=== PATIENT | male | born 1960 | race African-American/Black ===

== ENCOUNTER 2016-10-20 13:12 | Emergency (ER) | payer MEDICAID ==
[2016-10-20 14:17] LABS: BASOPHILS 0.3 % (0.0-2.0); EOSINOPHILS 1.5 % (0-7); HEMATOCRIT 43.8 % (42.0-54.0); HEMOGLOBIN 14.7 g/dL (13.5-17.5); IMMATURE GRANULOCYTES 0.2 % (0-5); LYMPHOCYTES 32.7 % (15-50); MCH 29.8 pg (26.0-34.0); MCHC 33.6 g/dL (31.0-37.0); MCV 88.8 fL (80.0-100.0); MEAN PLATELET VOLUME 10.3 fL (7.4-10.4); MONOCYTES 6.5 % (2-11); NEUTROPHILS 58.8 % (40-80); PLATELET COUNT 258 10x3/uL (130-400); RBC 4.93 10x6/uL (4.20-6.10); RDW 13.8 % (11.5-14.5)
[2016-10-20 14:39] LABS: ALBUMIN 3.5 g/dL (3.4-5.0); ALKALINE PHOSPHATASE 41 U/L (46-116); ALT (SGPT) 20 U/L (10-68); BILIRUBIN - TOTAL 0.63 mg/dL (0.2-1.3); CALC OSMOLALITY 281 mosm/kg (275-300); CALCIUM 9.4 mg/dL (8.5-10.1); CARBON DIOXIDE 29.3 mmol/L (21.0-32.0); CHLORIDE - SERUM 106 mmol/L (98-107); CREATININE - SERUM 1.2 mg/dL (0.6-1.3); GLUCOSE 89 mg/dL (74-106); POTASSIUM - SERUM 3.7 mmol/L (3.5-5.1); PROTEIN - SERUM 7.1 g/dL (6.4-8.2); SODIUM 143 mmol/L (136-145); UREA NITROGEN 6 mg/dL (7-18); eGFR NON AFRICAN AMERICAN 66 mL/min (90-120)
[2016-10-20 14:50] LABS: CKMB 1.6 U/L (0.0-3.6); CREATINE KINASE 257 UL (21-232)
[2016-10-20 14:51] LABS: TROPONIN-I < 0.017 ng/mL (0.000-0.060)
== END 2016-10-20 15:50 | disposition home or self-care (01) ==
LOC: D.ER 13:12
PROVIDERS: Emergency Medicine
DX: S29.011A Strain of muscle and tendon of front wall of thorax, initial encounter (principal); X50.0XXA Overexertion from strenuous movement or load, initial encounter; X50.9XXA Other and unspecified overexertion or strenuous movements or postures, initial encounter; Y93.89 Activity, other specified; Y92.89 Other specified places as the place of occurrence of the external cause; F17.200 Nicotine dependence, unspecified, uncomplicated

== ENCOUNTER 2017-01-26 00:41 | Emergency (ER) | payer SELFPAY | END 2017-01-26 02:35 | disposition home or self-care (01) | LOC: D.ER 00:41 | DX: M79.672 Pain in left foot (principal); M79.671 Pain in right foot ==

== ENCOUNTER → 2017-01-26 04:16 | Emergency (ER) | payer SELFPAY ==
[2017-01-26 04:32] LABS: BASOPHILS 0.3 % (0-2); EOSINOPHILS 2.3 % (0-7); HEMATOCRIT 40.8 % (42.0-54.0); HEMOGLOBIN 13.3 g/dL (13.5-17.5); IMMATURE GRANULOCYTES 0.1 % (0-5); LYMPHOCYTES 34.8 % (15-50); MCH 29.2 pg (26.0-34.0); MCHC 32.6 g/dL (31.0-37.0); MCV 89.7 fL (80.0-100.0); MEAN PLATELET VOLUME 10.2 fL (7.4-10.4); MONOCYTES 7.2 % (2-11); NEUTROPHILS 55.3 % (40-80); PLATELET COUNT 213 10x3/uL (130-400); RBC 4.55 10x6/uL (4.20-6.10); RDW 13.5 % (11.5-14.5); WBC 6.8 10x3/uL (4.8-10.8)
[2017-01-26 04:50] LABS: ALBUMIN 3.2 g/dL (3.4-5.0); ANION GAP 12.3 mmol/L (8-16); BILIRUBIN - TOTAL 0.32 mg/dL (0.2-1.3); CALCIUM 9.1 mg/dL (8.5-10.1); CREATININE - SERUM 1.2 mg/dL (0.6-1.3); POTASSIUM - SERUM 3.3 mmol/L (3.5-5.1)
== END | disposition home or self-care (01) ==
LOC: D.ER 04:16
PROVIDERS: Emergency Medicine
DX: R10.12 Left upper quadrant pain (principal); F17.200 Nicotine dependence, unspecified, uncomplicated

== ENCOUNTER 2017-01-27 01:02 | Emergency (ER) | payer SELFPAY | END 2017-01-27 02:53 | disposition home or self-care (01) | LOC: D.ER 01:02 | DX: R07.89 Other chest pain (principal); F17.200 Nicotine dependence, unspecified, uncomplicated ==

== ENCOUNTER 2017-12-08 07:47 | Emergency (ER) | payer MEDICAID ==
[2017-12-08 08:59] LABS: APPEARANCE HAZY (CLEAR); BILIRUBIN NEGATIVE (NEGATIVE); COLOR YELLOW (YELLOW); GLUCOSE NEGATIVE (NEGATIVE); KETONE NEGATIVE (NEGATIVE); NITRITE NEGATIVE (NEGATIVE); PROTEIN 2+ mg/dL (NEGATIVE); UROBILINOGEN NORMAL (NORMAL)
[2017-12-08 09:03] LABS: BACTERIA MODERATE /hpf (NONE SEEN); EPITHELIAL CELLS 0-5 /hpf (0-5); MUCUS >1+ /lpf (NONE SEEN); RED CELLS - URINE >50 /hpf (0-5)
[2017-12-08 09:26] LABS: ALBUMIN 3.7 g/dL (3.4-5.0); ANION GAP 11.4 mmol/L (8-16); BILIRUBIN - TOTAL 0.82 mg/dL (0.2-1.3); CALCIUM 9.4 mg/dL (8.5-10.1); CARBON DIOXIDE 29.4 mmol/L (21.0-32.0); CREATININE - SERUM 1.2 mg/dL (0.6-1.3); POTASSIUM - SERUM 3.8 mmol/L (3.5-5.1); PROTEIN - SERUM 7.6 g/dL (6.4-8.2)
== END 2017-12-08 11:33 | disposition home or self-care (01) ==
LOC: D.ER 07:47
PROVIDERS: Emergency Medicine
DX: N50.3 Cyst of epididymis (principal); N43.3 Hydrocele, unspecified

== ENCOUNTER 2018-08-18 21:41 | Emergency (ER) | payer MEDICAID ==
[~2018-08-18] VITALS: Ht 180.3 cm; Wt 79.5 kg
[2018-08-18 21:45] VITALS: Ht 180.3 cm; Wt 79.5 kg
[2018-08-18] MEDS ORDERED: VOLTAREN75 MG PO (22:51)
[2018-08-18 23:19] VITALS: BP 165/107
== END 2018-08-18 23:19 | disposition home or self-care (01) ==
LOC: D.ER 21:41
DX: S69.92XA Unspecified injury of left wrist, hand and finger(s), initial encounter (principal); W23.0XXA Caught, crushed, jammed, or pinched between moving objects, initial encounter; Y93.89 Activity, other specified; Y92.511 Restaurant or cafe as the place of occurrence of the external cause

== ENCOUNTER 2018-08-20 17:32 | Emergency (ER) | payer MEDICAID ==
[~2018-08-20 17:32] MED LIST: VOLTAREN75 MG PO
[2018-08-20 17:47] VITALS: Ht 180.3 cm
[2018-08-20] MEDS ORDERED: ULTRAM50 MG PO (18:43)
[2018-08-20 18:52] VITALS: BP 136/94
== END 2018-08-20 18:55 | disposition home or self-care (01) ==
LOC: D.ER 17:32
DX: M79.645 Pain in left finger(s) (principal)

== ENCOUNTER 2018-08-23 09:22 | Emergency (ER) | payer MEDICAID ==
[~2018-08-23] VITALS: Ht 180.3 cm; Wt 70.5 kg
[~2018-08-23 09:22] MED LIST changes: +ULTRAM50 MG PO
[2018-08-23 09:38] VITALS: Ht 180.3 cm; Wt 70.5 kg
[2018-08-23] MEDS ORDERED: CYCLOBENZAPRINE10 MG PO (10:35)
[2018-08-23] MEDS ORDERED: IBUPROFEN800 MG PO (10:35)
[2018-08-23] MEDS ORDERED: ACETAMINOPHEN500 M1 PO (10:35)
[2018-08-23 10:57] VITALS: BP 132/68
== END 2018-08-23 10:59 | disposition home or self-care (01) ==
LOC: D.ER 09:22
DX: M79.645 Pain in left finger(s) (principal)

== ENCOUNTER 2018-09-04 04:08 | Emergency (ER) | payer MEDICAID ==
[~2018-09-04] VITALS: Ht 180.3 cm; Wt 86.4 kg
[~2018-09-04 04:08] MED LIST changes: +ACETAMINOPHEN500 M1 PO; +CYCLOBENZAPRINE10 MG PO; +IBUPROFEN800 MG PO
[2018-09-04 04:13] VITALS: Ht 180.3 cm; Wt 86.4 kg
[2018-09-04 04:36] VITALS: BP 158/70
[2018-09-09] MEDS ORDERED: VOLTAREN75 MG PO (19:46)
[2018-09-09] MEDS ORDERED: BACLOFEN20 M1 PO (19:46)
== END 2018-09-04 04:35 | disposition home or self-care (01) ==
LOC: D.ER 04:08
DX: M79.642 Pain in left hand (principal); F17.200 Nicotine dependence, unspecified, uncomplicated

== ENCOUNTER 2018-09-09 17:50 | Emergency (ER) | payer MEDICAID | END 2018-09-09 20:02 | disposition home or self-care (01) | LOC: D.ER 17:50 | DX: M25.512 Pain in left shoulder (principal); R51 Headache; M25.562 Pain in left knee ==

== ENCOUNTER 2018-09-14 15:58 | Emergency (ER) | payer MEDICAID ==
[~2018-09-14] VITALS: Ht 180.3 cm; Wt 81.8 kg
[~2018-09-14 15:58] MED LIST changes: +BACLOFEN20 M1 PO
[2018-09-14 16:05] VITALS: Ht 180.3 cm; Wt 81.8 kg
[2018-09-14 16:16] VITALS: BP 124/76
== END 2018-09-14 16:16 | disposition home or self-care (01) ==
LOC: D.ER 15:58
DX: S61.012A Laceration without foreign body of left thumb without damage to nail, initial encounter (principal); W26.8XXA Contact with other sharp object(s), not elsewhere classified, initial encounter; Y93.89 Activity, other specified; Y92.019 Unspecified place in single-family (private) house as the place of occurrence of the external cause

== ENCOUNTER 2018-09-14 20:50 | Emergency (ER) | payer MEDICAID ==
[~2018-09-14] VITALS: Ht 180.3 cm; Wt 69.5 kg
[2018-09-14 20:59] VITALS: Ht 180.3 cm; Wt 69.5 kg
[2018-09-14 22:39] VITALS: BP 142/79
== END 2018-09-14 22:39 | disposition home or self-care (01) ==
LOC: D.ER 20:50
DX: M79.602 Pain in left arm (principal); H53.9 Unspecified visual disturbance

== ENCOUNTER 2018-11-09 00:06 | Emergency (ER) | payer MEDICAID ==
[~2018-11-09] VITALS: Ht 180.3 cm; Wt 63.6 kg
[2018-11-09 00:08] VITALS: Ht 180.3 cm; Wt 63.6 kg
[2018-11-09] MEDS ORDERED: HYDROCODON-ACE1 EA10 PO (01:37)
[2018-11-09 02:00] VITALS: BP 180/103
== END 2018-11-09 02:00 | disposition home or self-care (01) ==
LOC: D.ER 00:06
DX: T23.292A Burn of second degree of multiple sites of left wrist and hand, initial encounter (principal); X08.8XXA Exposure to other specified smoke, fire and flames, initial encounter; Y93.89 Activity, other specified; Y92.89 Other specified places as the place of occurrence of the external cause; T23.291A Burn of second degree of multiple sites of right wrist and hand, initial encounter

== ENCOUNTER 2018-12-26 02:54 | Emergency (ER) | payer MEDICAID ==
[~2018-12-26] VITALS: Ht 180.3 cm; Wt 68.2 kg
[~2018-12-26 02:54] MED LIST changes: +HYDROCODON-ACE1 EA10 PO
[2018-12-26 03:10] VITALS: Ht 180.3 cm; Wt 68.2 kg
[2018-12-26] MEDS ORDERED: ACETAMINOPHEN500 M1 PO (03:36)
[2018-12-26] MEDS ORDERED: IBUPROFEN800 MG PO (03:36)
[2018-12-26] MEDS ORDERED: KEFLEX500 MG PO (03:37)
[2018-12-26 03:50] VITALS: BP 150/87
[2018-12-26] MEDS ORDERED: NORVASC10 MG PO (08:29)
== END 2018-12-26 03:50 | disposition home or self-care (01) ==
LOC: D.ER 02:54
DX: R51 Headache (principal); R09.89 Other specified symptoms and signs involving the circulatory and respiratory systems

== ENCOUNTER 2018-12-26 06:34 | Emergency (ER) | payer MEDICAID ==
[~2018-12-26] VITALS: Ht 180.3 cm; Wt 79.5 kg
[~2018-12-26 06:34] MED LIST changes: +KEFLEX500 MG PO
[2018-12-26 06:42] VITALS: Ht 180.3 cm; Wt 79.5 kg
[2018-12-26 07:18] LABS: BASOPHILS 0.4 % (0-2); EOSINOPHILS 1.6 % (0-7); HEMATOCRIT 42.3 % (42.0-54.0); HEMOGLOBIN 13.5 g/dL (13.5-17.5); IMMATURE GRANULOCYTES 0.1 % (0-5); LYMPHOCYTES 39.1 % (15-50); MCHC 31.9 g/dL (31.0-37.0); MCV 90.8 fL (80.0-100.0); MEAN PLATELET VOLUME 10.6 fL (7.4-10.4); MONOCYTES 7.4 % (2-11); NEUTROPHILS 51.4 % (40-80); RBC 4.66 10x6/uL (4.20-6.10); RDW 13.6 % (11.5-14.5); WBC 6.8 10x3/uL (4.8-10.8)
[2018-12-26 07:32] LABS: ALBUMIN 3.6 g/dL (3.4-5.0); ANION GAP 13.4 mmol/L (8-16); BILIRUBIN - TOTAL 0.36 mg/dL (0.2-1.3); CALCIUM 8.8 mg/dL (8.5-10.1); CARBON DIOXIDE 26.3 mmol/L (21.0-32.0); CREATININE - SERUM 1.5 mg/dL (0.6-1.3); POTASSIUM - SERUM 3.7 mmol/L (3.5-5.1); PROTEIN - SERUM 7.6 g/dL (6.4-8.2)
[2018-12-26 07:37] LABS: PLATELET COUNT 256 10x3/uL (130-400)
[2018-12-26 08:05] LABS: CKMB 1.6 U/L (0.0-3.6); CREATINE KINASE 258 UL (21-232); TROPONIN-I < 0.017 ng/mL (0.000-0.060)
[2018-12-26] MEDS ORDERED: NORVASC10 MG PO (08:29)
[2018-12-26 08:47] VITALS: BP 107/64
== END 2018-12-26 08:41 | disposition home or self-care (01) ==
LOC: D.ER 06:34
PROVIDERS: Emergency Medicine; Family Medicine
DX: R51 Headache (principal); R07.9 Chest pain, unspecified; I10 Essential (primary) hypertension

== ENCOUNTER 2019-03-21 15:29 | Emergency (ER) | payer MEDICAID ==
[~2019-03-21 15:29] MED LIST changes: +NORVASC10 MG PO
[2019-03-21 15:46] VITALS: BMI 21.0
[2019-03-21] MEDS ORDERED: NEURONTIN 300300 MG PO (18:54)
[2019-03-21 20:17] VITALS: BP 181/100
== END 2019-03-21 20:18 | disposition home or self-care (01) ==
LOC: D.ER 15:29
DX: Z87.820 Personal history of traumatic brain injury (principal); R51 Headache

== ENCOUNTER 2019-06-05 20:49 | Emergency (ER) | payer MEDICAID ==
[~2019-06-05] VITALS: Ht 180.3 cm; Wt 75.0 kg
[~2019-06-05 20:49] MED LIST changes: +NEURONTIN 300300 MG PO
[2019-06-05 21:02] VITALS: Ht 180.3 cm; Wt 75.0 kg
[2019-06-05] MEDS ORDERED: NORVASC10 MG PO (22:15)
[2019-06-05] MEDS ORDERED: BENADRYL25 MG PO (22:15)
[2019-06-05 22:36] VITALS: BP 143/82
== END 2019-06-05 22:37 | disposition home or self-care (01) ==
LOC: D.ER 20:49
DX: I10 Essential (primary) hypertension (principal)

== ENCOUNTER 2019-07-09 14:49 | Emergency (ER) | payer MEDICAID ==
[~2019-07-09] VITALS: Ht 180.3 cm; Wt 68.2 kg
[~2019-07-09 14:49] MED LIST changes: +BENADRYL25 MG PO
[2019-07-09 15:29] VITALS: Ht 180.3 cm; Wt 68.2 kg
[2019-07-09 17:02] VITALS: BP 147/89
[2019-07-09] MEDS ORDERED: HYDROCORTISO28.35 G1 TOPICAL (20:55)
== END 2019-07-09 17:02 | disposition home or self-care (01) ==
LOC: D.ER 14:49
DX: Z00.00 Encounter for general adult medical examination without abnormal findings (principal)

== ENCOUNTER 2019-07-09 19:21 | Emergency (ER) | payer MEDICAID ==
[~2019-07-09] VITALS: Ht 180.3 cm; Wt 59.1 kg
[2019-07-09 20:33] VITALS: BP 143/89; Ht 180.3 cm; Wt 59.1 kg
[2019-07-09] MEDS ORDERED: HYDROCORTISO28.35 G1 TOPICAL (20:55)
[2019-07-09 21:19] LABS: BASOPHILS 0.2 % (0-2); EOSINOPHILS 2.9 % (0-7); HEMATOCRIT 40.9 % (42.0-54.0); HEMOGLOBIN 13.3 g/dL (13.5-17.5); IMMATURE GRANULOCYTES 0.2 % (0-5); LYMPHOCYTES 45.8 % (15-50); MCH 29.8 pg (26.0-34.0); MCHC 32.5 g/dL (31.0-37.0); MCV 91.7 fL (80.0-100.0); MEAN PLATELET VOLUME 9.9 fL (7.4-10.4); MONOCYTES 12.6 % (2-11); NEUTROPHILS 38.3 % (40-80); PLATELET COUNT 250 10x3/uL (130-400); RBC 4.46 10x6/uL (4.20-6.10); RDW 13.2 % (11.5-14.5); WBC 5.9 10x3/uL (4.8-10.8)
[2019-07-09 21:34] LABS: ALKALINE PHOSPHATASE 45 U/L (46-116); ALT (SGPT) 15 U/L (10-68); BILIRUBIN - TOTAL 0.61 mg/dL (0.2-1.3); CALC OSMOLALITY 285 mosm/kg (275-300); CALCIUM 9.4 mg/dL (8.5-10.1); CARBON DIOXIDE 30.5 mmol/L (21.0-32.0); CHLORIDE - SERUM 103 mmol/L (98-107); CREATININE - SERUM 2.8 mg/dL (0.6-1.3); GLUCOSE 89 mg/dL (74-106); POTASSIUM - SERUM 3.6 mmol/L (3.5-5.1); SODIUM 142 mmol/L (136-145); UREA NITROGEN 23 mg/dL (7-18); eGFR NON AFRICAN AMERICAN 25 mL/min (90-120)
[2019-07-09 21:39] LABS: TROPONIN-I < 0.017 ng/mL (0.000-0.060)
== END 2019-07-09 22:48 | disposition home or self-care (01) ==
LOC: D.ER 19:21
PROVIDERS: Family Medicine
DX: R21 Rash and other nonspecific skin eruption (principal)

== ENCOUNTER 2019-08-09 08:35 | Emergency (ER) | payer MEDICAID ==
[~2019-08-09] VITALS: Ht 180.3 cm; Wt 72.7 kg
[~2019-08-09 08:35] MED LIST changes: +HYDROCORTISO28.35 G1 TOPICAL
[2019-08-09 08:38] VITALS: Ht 180.3 cm; Wt 72.7 kg
[2019-08-09] MEDS ORDERED: PREDNISONE20 MG PO (09:15)
[2019-08-09] MEDS ORDERED: FLUTICASONE PRO16 GM NASAL (09:15)
[2019-08-09 10:09] VITALS: BP 126/80
== END 2019-08-09 10:00 | disposition home or self-care (01) ==
LOC: D.ER 08:35
DX: J32.9 Chronic sinusitis, unspecified (principal); F17.210 Nicotine dependence, cigarettes, uncomplicated

== ENCOUNTER 2019-09-13 00:37 | Emergency (ER) | payer MEDICAID ==
[~2019-09-13] VITALS: Ht 180.3 cm; Wt 59.1 kg
[~2019-09-13 00:37] MED LIST changes: +FLUTICASONE PRO16 GM NASAL; +PREDNISONE20 MG PO
[2019-09-13 00:38] VITALS: BP 143/83; Ht 180.3 cm; Wt 59.1 kg
[2019-09-13 01:08] LABS: BASOPHILS 0.2 % (0-2); EOSINOPHILS 2.1 % (0-7); HEMOGLOBIN 12.1 g/dL (13.5-17.5); IMMATURE GRANULOCYTES 0.2 % (0-5); LYMPHOCYTES 40.2 % (15-50); MCH 29.8 pg (26.0-34.0); MCHC 32.7 g/dL (31.0-37.0); MCV 91.1 fL (80.0-100.0); MEAN PLATELET VOLUME 10.1 fL (7.4-10.4); NEUTROPHILS 48.3 % (40-80); PLATELET COUNT 248 10x3/uL (130-400); RBC 4.06 10x6/uL (4.20-6.10); WBC 6.3 10x3/uL (4.8-10.8)
[2019-09-13 01:17] LABS: ANION GAP 8.5 mmol/L (8-16); CALCIUM 8.5 mg/dL (8.5-10.1); CARBON DIOXIDE 29.1 mmol/L (21.0-32.0); CREATININE - SERUM 1.3 mg/dL (0.6-1.3); POTASSIUM - SERUM 3.6 mmol/L (3.5-5.1)
[2019-09-13 01:24] LABS: ALBUMIN 2.7 g/dL (3.4-5.0); BILIRUBIN - TOTAL 0.3 mg/dL (0.2-1.3); MAGNESIUM - SERUM 1.9 mg/dL (1.8-2.4); PROTEIN - SERUM 6.1 g/dL (6.4-8.2)
[2019-09-13 02:28] LABS: UDS - AMPHET NEGATIVE QUAL (NEGATIVE); UDS - BARB NEGATIVE QUAL (NEGATIVE); UDS - BENZO NEGATIVE QUAL (NEGATIVE); UDS - COCAINE POSITIVE QUAL (NEGATIVE); UDS - OPIATE NEGATIVE QUAL (NEGATIVE); UDS - PCP NEGATIVE QUAL (NEGATIVE); UDS - THC POSITIVE QUAL (NEGATIVE)
[2019-09-13 02:37] LABS: APPEARANCE CLEAR (CLEAR); BILIRUBIN NEGATIVE (NEGATIVE); COLOR YELLOW (YELLOW); GLUCOSE NEGATIVE (NEGATIVE); KETONE NEGATIVE (NEGATIVE); NITRITE NEGATIVE (NEGATIVE); PROTEIN NEGATIVE (NEGATIVE); SPECIFIC GRAVITY 1.025 (1.005-1.020); UROBILINOGEN NORMAL (NORMAL)
[2019-09-13 02:38] LABS: BACTERIA FEW /hpf (NEGATIVE); EPITHELIAL CELLS 0-5 /hpf (0-5); RED CELLS - URINE 0-5 /hpf (0-5)
--- NOTE | 2019-09-13 04:15 | NUR ---
DR YORK NOTIFIED AND REVIEWED PT's BEHAVIOR AND ASSESSMENT RESULTS. PT IS A LOW RISK PER DR YORK. DR YORK STATED TO GIVE RESOURCES TO PT AT TIME OF DISCHARGE. NO FURTHER ORDERS AT THIS TIME, RESOURCES REVIEWED WITH PATIENT AND HE VERBALIZED UNDERSTANDING.
== END 2019-09-13 04:33 | disposition home or self-care (01) ==
LOC: D.ER 00:37
PROVIDERS: Family Medicine
DX: F28 Other psychotic disorder not due to a substance or known physiological condition (principal); N34.2 Other urethritis

== ENCOUNTER 2019-10-15 17:23 | Emergency (ER) | payer MEDICAID ==
[~2019-10-15] VITALS: Ht 180.3 cm; Wt 75.0 kg
[2019-10-15 17:24] VITALS: Ht 180.3 cm; Wt 75.0 kg
[2019-10-15 18:07] LABS: BASOPHILS 0.4 % (0-2); EOSINOPHILS 2.6 % (0-7); HEMOGLOBIN 14.2 g/dL (13.5-17.5); IMMATURE GRANULOCYTES 0.1 % (0-5); MCH 29.7 pg (26.0-34.0); MEAN PLATELET VOLUME 9.6 fL (7.4-10.4); MONOCYTES 5.2 % (2-11); NEUTROPHILS 69.7 % (40-80); PLATELET COUNT 273 10x3/uL (130-400); RBC 4.78 10x6/uL (4.20-6.10); RDW 12.8 % (11.5-14.5); WBC 6.9 10x3/uL (4.8-10.8)
[2019-10-15 18:20] LABS: LITHIUM 1.91 mmol/L (0.60-1.20); SALICYLATES 1.7 mg/dL (2.8-20.0)
[2019-10-15 18:22] LABS: ANION GAP 11.9 mmol/L (8-16); CALCIUM 9.7 mg/dL (8.5-10.1); CARBON DIOXIDE 27.7 mmol/L (21.0-32.0); CREATININE - SERUM 1.6 mg/dL (0.6-1.3); POTASSIUM - SERUM 3.6 mmol/L (3.5-5.1)
[2019-10-15 18:28] LABS: ALBUMIN 3.6 g/dL (3.4-5.0); BILIRUBIN - TOTAL 0.7 mg/dL (0.2-1.3); MAGNESIUM - SERUM 1.7 mg/dL (1.8-2.4); PROTEIN - SERUM 7.4 g/dL (6.4-8.2)
[2019-10-15 19:46] VITALS: BP 108/61
== END 2019-10-15 19:46 | disposition home or self-care (01) ==
LOC: D.ER 17:23
PROVIDERS: Family Medicine
DX: R78.89 Finding of other specified substances, not normally found in blood (principal)

== ENCOUNTER 2020-03-09 12:23 | Emergency (ER) | payer MEDICAID ==
[~2020-03-09] VITALS: Ht 180.3 cm; Wt 72.7 kg
[2020-03-09 12:35] VITALS: Ht 180.3 cm; Wt 72.7 kg
[2020-03-09 13:26] LABS: UDS - AMPHET NEGATIVE QUAL (NEGATIVE); UDS - BARB NEGATIVE QUAL (NEGATIVE); UDS - BENZO NEGATIVE QUAL (NEGATIVE); UDS - COCAINE POSITIVE QUAL (NEGATIVE); UDS - OPIATE NEGATIVE QUAL (NEGATIVE); UDS - PCP NEGATIVE QUAL (NEGATIVE); UDS - THC NEGATIVE QUAL (NEGATIVE)
[2020-03-09 13:26] LABS: ANION GAP 8.5 mmol/L (8-16); CALCIUM 8.8 mg/dL (8.5-10.1); CARBON DIOXIDE 32.3 mmol/L (21.0-32.0); CREATININE - SERUM 1.8 mg/dL (0.6-1.3); POTASSIUM - SERUM 3.8 mmol/L (3.5-5.1)
[2020-03-09 13:30] LABS: ALBUMIN 3.3 g/dL (3.4-5.0); BILIRUBIN - TOTAL 0.42 mg/dL (0.2-1.3); MAGNESIUM - SERUM 2.1 mg/dL (1.8-2.4); PROTEIN - SERUM 6.9 g/dL (6.4-8.2)
[2020-03-09 13:41] LABS: BASOPHILS 0.4 % (0-2); EOSINOPHILS 1.9 % (0-7); IMMATURE GRANULOCYTES 0.2 % (0-5); LYMPHOCYTES 35.6 % (15-50); MCH 29.8 pg (26.0-34.0); MCHC 32.6 g/dL (31.0-37.0); MCV 91.3 fL (80.0-100.0); MEAN PLATELET VOLUME 10.2 fL (7.4-10.4); MONOCYTES 8.4 % (2-11); NEUTROPHILS 53.5 % (40-80); PLATELET COUNT 245 10x3/uL (130-400); RBC 5.04 10x6/uL (4.20-6.10); RDW 13.2 % (11.5-14.5); WBC 5.3 10x3/uL (4.8-10.8)
[2020-03-09 14:00] LABS: BACTERIA FEW /hpf (NEGATIVE); BILIRUBIN NEGATIVE (NEGATIVE); CALCIUM OXALATE CRYSTALS 0-5 /hpf (NONE SEEN); EPITHELIAL CELLS 0-5 /hpf (0-5); GLUCOSE NEGATIVE (NEGATIVE); KETONE SMALL mg/dL (NEGATIVE); NITRITE NEGATIVE (NEGATIVE); RED CELLS - URINE 0-5 /hpf (0-5); SPECIFIC GRAVITY 1.025 (1.005-1.020)
[2020-03-09] MEDS ORDERED: OMNICEF300 MG PO (15:52)
--- NOTE | 2020-03-09 15:57 | NUR ---
DR. YORK NOTIFIED AND SITTER ORDERED. SITTER AT BEDSIDE. NOTIFIED CHARGE NURSE AND ATTENDING IN REGARDS TO ASSESSMENT FINDINGS. RESOURCES GIVEN TO PT AND SAFETY PLAN INITIATED.
[2020-03-09 16:52] VITALS: BP 140/78
== END 2020-03-09 16:54 ==
LOC: D.ER 12:23
PROVIDERS: Family Medicine
DX: R45.851 Suicidal ideations (principal); N18.9 Chronic kidney disease, unspecified; N39.0 Urinary tract infection, site not specified; I25.2 Old myocardial infarction; Z72.0 Tobacco use; R07.9 Chest pain, unspecified